=== PATIENT | female | born 1955 | race African-American/Black ===

== ENCOUNTER → 2020-11-24 12:46 | Outpatient (CLI) | payer BC, SELFPAY ==
--- NOTE | ~2020-11-24 | US_ITS ---
EXAMINATION: US thyroid DATE: 11/24/2020 13:02 INDICATION: Iodine deficiency related diffuse goiter. TECHNIQUE: Multiple ultrasound images of the thyroid were obtained. COMPARISON: None. FINDINGS: The right thyroid lobe measures 5.8 x 1.3 x 1.6 cm. The left thyroid lobe measures 4.5 x 1.5 x 1.4 c m. In the left thyroid lobe, there is a 1.7 cm solid, hypoechoic, fqrrg-atmi-dcmg nodule with ill-de fined margin and punctate echogenic foci (TI-RADS TR5). In the left thyroid lobe, there is a 1.1 cm s olid, hypoechoic, tivlmw-isyo-uoqk nodule with lobulated margin and punctate echogenic foci (TR5). In the right thyroid lobe, there is a 1.1 cm solid, hypoechoic, vacgp-otun-enbp nodule with ill-defined margin without echogenic foci (TR4). In the right thyroid lobe, there is a 9 mm solid, hypoechoic, w iyef-vfrj-tkvi nodule with ill-defined margin without echogenic foci (TR4). IMPRESSION: 1. Multinodular goiter. Ultrasound-guided fine-needle aspiration of the 2 left-sided nodules is recom mended. Reviewed, dictated and finalized at location B. FOREMAN IMPRESSION: 1. Multinodular goiter. Ultrasound-guided fine-needle aspiration of the 2 left- sided nodules is recommended.
== END ==
PROVIDERS: PCP Family Medicine; Visit Provider Family Medicine
DX: E01.0 Iodine-deficiency related diffuse (endemic) goiter (principal)
CPT/HCPCS: 76536

== ENCOUNTER → 2021-05-07 09:10 | Outpatient (CLI) | payer MEDICARE, SELFPAY ==
--- NOTE | ~2021-05-07 | US_ITS ---
EXAMINATION: US thyroid DATE: 05/07/2021 09:31 INDICATION: Goiter. TECHNIQUE: Multiple ultrasound images of the thyroid were obtained. COMPARISON: Ultrasound 11/24/2020 FINDINGS: The right thyroid lobe measures 4.6 x 1.5 x 1.4 cm. The left thyroid lobe measures 4.1 x 1.4 x 1.0 c m. The thyroid is heterogeneous with increased activity. In the right thyroid lobe, there is a 1.0 cm solid, isoechoic, rxmxr-tnch-mkrk nodule with ill-defined margin without echogenic foci (TI-RADS TR3 ). In the right thyroid lobe, there is an 8 mm predominantly solid, hypoechoic, bzkyn-mpza-pbut nodul e with smooth margin without echogenic foci (TR4). In the left thyroid lobe, there is a 1.8 cm solid, isoechoic, bdjuh-fkko-lpto nodule with ill-defined margin without echogenic foci (TR3). There is lef t internal jugular chain lymphadenopathy with the largest node measuring 2.8 x 1.1 x 1.6 cm. IMPRESSION: 1. Left internal jugular lymphadenopathy, which may be reactive or metastatic disease. Ultrasound-bandar ded core needle biopsy is recommended. 2. Thyroid nodules. Thyroid ultrasound is recommended in one year. 3. Heterogeneous, hypervascular thyroid, consistent with chronic lymphocytic (Lucho) thyroiditis. Reviewed, dictated and finalized at location A. IMPRESSION: 1. Left internal jugular lymphadenopathy, which may be reactive or metastatic d isease. Ultrasound-guided core needle biopsy is recommended. 2. Thyroid nodules. Thyroid ultrasound is recommended in one year. 3. Heterogeneous, hypervascular thyroid, consistent with chronic lymphocytic (H ashimoto) thyroiditis.
== END ==
PROVIDERS: PCP Family Medicine; Visit Provider Physician Assistant
DX: E04.2 Nontoxic multinodular goiter (principal)
CPT/HCPCS: 76536